=== PATIENT | female | born 1995 | race Caucasian/White ===

== ENCOUNTER 2016-05-17 09:14 | Emergency (ER) | payer MEDICAID, OTHER ==
[~2016-05-17] VITALS: Ht 154.9 cm; Wt 45.5 kg
[2016-05-17 09:26] VITALS: BP 121/62; PULSE 57; RESP 15; TEMP 98.3; O2SAT 98
[2016-05-17 09:46] VITALS: BP 98/56; PULSE 63; RESP 17; TEMP 99; O2SAT 98
--- NOTE | 2016-05-17 11:59 | PD ---
HPI Chief Complaint: Psychiatric Symptoms Time Seen by Provider: 11:58 Travel History International Travel<30 days: No Contact w/Intl Traveler<30days: No Traveled to known affect area: No History of Present Illness HPI 21-year-old female that presents to the ED for evaluation of psychiatric evaluation. Patient came here voluntarily for evaluation of depression. Per patient she's been having depression ongoing for almost 6 months. Per patient she goes to see a therapist for this and they recommended that she go see a psychiatrist. Per patient she's never done so as of yet. Per patient lives stressors have increased so that her depression has been worsening and so she came here. She states that she's never been on medications for this. She denies any history of drug abuse or alcohol abuse. She states that her therapist also believes that maybe she might be bipolar but again she has not seen a psychiatrist for this that she has not done any treatment or evaluation for this. She denies any suicidal or homicidal ideation. Per patient her symptoms are moderate and are progressively getting worse for the past 6 months. She denies any medical complaint and takes no medications. Denies any injuries or trauma. PFSH Past Medical History Psychiatric: Yes ?: Not LMP: 05/17/16 : 0 Para: 0 Social History Alcohol Use: No Tobacco Use: No Substance Use: Yes (States smokes Marijuanna so she can deal with people. ) Allergies-Medications (Allergen,Severity, Reaction): Coded Allergies: Penicillin (Unverified Allergy, Unknown, 05/17/16) Per pt. Reported Meds & Prescriptions Reported Meds & Active Scripts Active No Active Prescriptions or Reported Medications Review of Systems General / Constitutional: No: Fever, Chills, Weight Gain, Weight Loss, Other Eyes: No: Diploplia, Blurred Vision, Photophobia, Drainage, Redness, Foreign Body Sensation, Pain, Tearing, Blind Spots, Visual changes, Blindness, Other HENT: No: Headaches, Vertigo, Lightheadedness, Sore Throat, Rhinitis, Rhinorrhea, Congestion, Nosebleed, Neck Stiffness, Neck Pain, Masses, Gingival Bleeding, Dental Difficulties, Ear Discharge, Earache, Other Cardiovascular: No: Chest Pain or Discomfort, Palpitations, Irregular Rhythm, Tachycardia, Diaphoresis, Syncope, Dyspnea on exertion, Varicosities, Edema, Cyanosis, Varicosities, Phlebitis, Claudication, Other Respiratory: No: Cough, Shortness of Breath, Wheezing, Sneezing, Orthopnea, Hemoptysis, Stridor, Night Sweats, Pleuritic Pain, Other Gastrointestinal: No: Nausea, Vomiting, Diarrhea, Abdominal Pain, Hematemesis, Hematochezia, Constipation, Changes in Bowel Habits, Indigestion, Dysphagia, Loss of Appetite, Other Genitourinary: No: Urgency, Frequency, Dysuria, Nocturia, Hematuria, Decreased Urinary Output, Oliguria, Hesitancy, Dribbling, Incontinence, Pelvic Pain, Flank Pain, Dyspareunia, Discharge, Dysmenorrhea, Menorrhagia, Metorrhagia, Vaginal Bleeding, Other Musculoskeletal: No: Myalgias, Arthralgias, Limited ROM, Weakness, Cramping, Edema, Pain, Atrophy, Other Skin: No Rash, No Itching, No Dryness, No Lumps, No Hives, No Change in Pigmentation, No Change in nails, No Alopecia, No Lesions, No Breast Lumps, No Breast Tenderness, No Breast Swelling, No Other Neurologic: No: Weakness, Dizziness, Syncope, Focal Abnormalities, Coordination Problem, Tremor, Ataxia, Headache, Change in Mentation, Slurred Speech, Paresthesia, Incontinence, Seizures, Sensory Disturbance, Other Psychiatric: Positive: Depression, Mood Disorder, No: Anxiety, Suicidal Ideations, Disorder of Thought, Substance Abuse, Homicidal Ideation, Other Endocrine: No: Heat Intolerance, Cold Intolerance, Polyuria, Polydipsia, Other Hematologic/Lymphatic: No: Easy Bruising, Lymph Node Enlargement, Other Physical Exam Narrative GENERAL: SKIN: Warm and dry. HEAD: Atraumatic. Normocephalic. EYES: Pupils equal and round. No scleral icterus. No injection or drainage. ENT: No nasal bleeding or discharge. Mucous membranes pink and moist. Tongue is midline. No uvula deviation. NECK: Trachea midline. No JVD. CARDIOVASCULAR: Regular rate and rhythm. No murmurs, S3, S4. RESPIRATORY: No accessory muscle use. Clear to auscultation. Breath sounds equal bilaterally. GASTROINTESTINAL: Abdomen soft, non-tender, nondistended. Hepatic and splenic margins not palpable. MUSCULOSKELETAL: Extremities without clubbing, cyanosis, or edema. No obvious deformities. Full range of motion of the upper and lower extremities bilaterally. 2+ pulses bilaterally. NEUROLOGICAL: Awake and alert. No obvious cranial nerve deficits. Motor grossly within normal limits. Five out of 5 muscle strength in the arms and legs. Normal speech. PSYCHIATRIC: Appropriate mood and affect; insight and judgment normal. Data Data Last Documented VS Vital Signs Date Time Temp Pulse Resp B/P Pulse Ox O2 Delivery O2 Flow Rate FiO2 05/17/16 09:46 99.0 63 17 98/56 98 Room Air Orders Complete Blood Count With Diff (05/17/16 09:18) Comprehensive Metabolic Panel (05/17/16 09:18) Psych Screen (05/17/16 09:18) Drug Screen, Random Urine (05/17/16 09:19) Diet Regular Basic (05/17/16 Lunch) Labs Laboratory Tests Test 05/17/16 05/17/16 11:55 11:57 White Blood Count 7.9 TH/MM3 Red Blood Count 4.05 MIL/MM3 Hemoglobin 12.9 GM/DL Hematocrit 37.5 % Mean Corpuscular Volume 92.7 FL Mean Corpuscular Hemoglobin 31.8 PG Mean Corpuscular Hemoglobin 34.3 % Concent Red Cell Distribution Width 13.1 % Platelet Count 181 TH/MM3 Mean Platelet Volume 9.1 FL Neutrophils (%) (Auto) 66.7 % Lymphocytes (%) (Auto) 24.1 % Monocytes (%) (Auto) 8.3 % Eosinophils (%) (Auto) 0.6 % Basophils (%) (Auto) 0.3 % Neutrophils # (Auto) 5.3 TH/MM3 Lymphocytes # (Auto) 1.9 TH/MM3 Monocytes # (Auto) 0.7 TH/MM3 Eosinophils # (Auto) 0.0 TH/MM3 Basophils # (Auto) 0.0 TH/MM3 CBC Comment DIFF FINAL Differential Comment Sodium Level 140 MEQ/L Potassium Level 3.8 MEQ/L Chloride Level 106 MEQ/L Carbon Dioxide Level 27.3 MEQ/L Anion Gap 7 MEQ/L Blood Urea Nitrogen 8 MG/DL Creatinine 0.68 MG/DL Estimat Glomerular Filtration 107 ML/MIN Rate Random Glucose 90 MG/DL Calcium Level 8.7 MG/DL Total Bilirubin 0.4 MG/DL Aspartate Amino Transf 13 U/L (AST/SGOT) Alanine Aminotransferase 16 U/L (ALT/SGPT) Alkaline Phosphatase 46 U/L Total Protein 7.6 GM/DL Albumin 4.4 GM/DL Urine Opiates Screen NEG Urine Barbiturates Screen NEG Urine Amphetamines Screen NEG Urine Benzodiazepines Screen NEG Urine Cocaine Screen NEG Urine Cannabinoids Screen POS MDM Medical Decision Making Medical Screen Exam Complete: Yes Emergency Medical Condition: Yes Medical Record Reviewed: Yes Interpretation(s) CBC & BMP Diagram 05/17/16 11:55 Tox negative LFTs negative Differential Diagnosis Depression versus suicidal ideation versus anxiety versus adjustment disorder versus mood disorder versus bipolar disorder versus schizophrenia versus paranoid disorder versus psychosis versus substance abuse versus alcohol abuse versus alcohol induced psychosis versus homicidality addition versus cutting versus personality disorder Narrative Course 21-year-old female that presents to the ED for evaluation of psych. Patient was properly examined and was found to have signs and symptoms consistent with psychiatric illness. No sign of acute medical distress. Patient will be medically clear. Okay to be seen by psych. Mental health screening was discussed with the patient. Diagnosis Primary Impression: Depression Qualified Code: F33.1 - Moderate episode of recurrent major depressive disorder Scripts No Active Prescriptions or Reported Meds Vitaliy Rajan May 17, 2016 11:59
[2016-05-17 12:28] LABS: AUTOMATED NEUTROPHIL # 5.3 TH/MM3 (1.8-7.7); BASOPHIL % 0.3 % (0.0-2.0); EOSINOPHIL % 0.6 % (0.0-4.0); HEMATOCRIT 37.5 % (35.0-46.0); HEMO FLAGS DIFF FINAL; LYMPH % 24.1 % (9.0-44.0); LYMPHOCYTE # 1.9 TH/MM3 (1.0-4.8); MEAN CELL VOLUME 92.7 FL (80.0-100.0); MEAN CORPUSCULAR HEMOGLOBIN 31.8 PG (27.0-34.0); MEAN CORPUSCULAR HGB CONC 34.3 % (32.0-36.0); MONO % 8.3 % (0.0-8.0); NEUT % 66.7 % (16.0-70.0); PLATELET COUNT 181 TH/MM3 (150-450); RED BLOOD COUNT 4.05 MIL/MM3 (4.00-5.30); RED CELL DISTRIBUTION WIDTH 13.1 % (11.6-17.2); WHITE BLOOD COUNT 7.9 TH/MM3 (4.0-11.0)
[2016-05-17 12:34] LABS: AMPHETAMINE, URINE NEG (NEG); BARBITURATES, URINE NEG (NEG); COCAINE, URINE NEG (NEG)
[2016-05-17 12:42] LABS: ANION GAP 7 MEQ/L (5-15); AST (GOT) 13 U/L (15-37); BICARBONATE 27.3 MEQ/L (21.0-32.0); BLOOD UREA NITROGEN 8 MG/DL (7-18); CHLORIDE 106 MEQ/L (98-107); GLOMERULAR FILTRATION RATE 107 ML/MIN (>89); POTASSIUM 3.8 MEQ/L (3.5-5.1); SODIUM (NA) 140 MEQ/L (136-145)
[2016-05-17 12:45] LABS: ALKALINE PHOSPHATASE 46 U/L (45-117); ALT (GPT) 16 U/L (10-53); TOTAL BILIRUBIN ADULT 0.4 MG/DL (0.2-1.0)
--- NOTE | 2016-05-17 13:37 | PD ---
History of Present Illness Chief Complaint: Psychiatric Symptoms Time Seen by Provider: 13:15 Travel History International Travel<30 Days: No Contact w/Intl Traveler<30days: No Known affected area: No Legal Status Legal Status: Voluntary History of Present Illness: History of Present Illness HPI 21-year-old female with no previous psychiatric history that presents to the ED for psychiatric evaluation. Patient came here voluntarily and as per the request of her mother. Patient reports that she has had difficulty controlling her anger and her impulses " all my life". Reports that when she gets angry she has a hard time letting go of it and usually blows up. Last week she became angry at her mother and she got into a verbal altercation with her. The mother called the police and she was arrested. She also reports that she gets into arguments with people at work and her logistics loss prevention manager has recommended that she receive help. She saw a counselor from [place] [id number] in the past 6 months. She has been trying to find a psychiatrist tin the community but has been unable to find one and is here in ED to help with finding a provider. She has had no previous contact with [facility] psychiatry. Toxicology is positive for cannabinoids. Patient is seen in [facility] pod. Awake, alert, oriented engaging and cooperative. Speech is clear and logical. No pressured speech. There is no psychosis and no hailey. She has not been agitated and has demonstrated appropritte impulse control. Patient with no suicidal or homicidal ideation. She discusses her custodial pattern of acting aggressive and impulsive behavior when she is angry. She is now considering the possible benefits of medication as her mother is reported to be on medication and she sees that she is able to function well. PFSH Past Medical History Patient Takes Glucophage: No Psychiatric: Yes Tetanus Vaccination: < 5 Years Influenza Vaccination: No ?: Not LMP: 05/17/16 : 0 Para: 0 Past Surgical History Surgical History: No Previous Surgery Psychiatric History Psychiatric History Hx Psychiatric Treatment: No previous tx Therapist - [facility] in [place], [place]. States that she saw him only twice approx 6 mons ago. States that she did not have the insurance to be able to see someone. States that she got insurance in Apr. States that she is trying now to received treatment. History of Inpatient Treatment: No Guns or firearms in home: No Social History Born and raised in [place]. Single. Lives with mother and 2 younger siblings. 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 Hx Alcohol Use: No (Denies any current use.) Hx Tobacco Use: No Hx Substance Use: No (Denies any current use/abuse. ) Substance Use Type: Marijuana Hx of Substance Use Treatment: No Family Psychiatric History Mother withbipolar disorder Allergies-Medications (Allergen,Severity, Reaction): Coded Allergies: Penicillin (Unverified Allergy, Unknown, 05/17/16) Per pt. Reported Meds & Prescriptions Reported Meds & Active Scripts Active No Active Prescriptions or Reported Medications Review of Systems Except as stated in HPI: all other systems reviewed are Neg Psychiatric: COMPLAINS OF: Agitation Exam Alert: Yes [place]: Person (ox4) Mood: Calm Affect: Euthymic Speech: Clear, Logical Eye Contact: Normal Memory Intact: Comment (no impairment) Hallucinations: Other (negative) Delusions: No Suicidal: Ideation (deneis any) Homicidal: Ideation (negative) Insight/Judgement Fair. Not impaired MDM Medical Decision Making Medical Record Reviewed: Yes Assessment/Plan 21 year old female under a voluntary basis for psychiatric evaluation. reports a hx of impulsive behavior and of anger management issues. Last week she was arrested after she was involved in an argument with her mother where the police were called. She is seeking to find a psychiatrist to consider the initiation of medication . Macy does not meet criteria for involuntary commitment and is requesting discahrge with outpatietn referrals. I will prescribe Vistaril to help until she is able to obtain outpatietn appointmetn. Discharge to self Orders Complete Blood Count With Diff (05/17/16 09:18) Comprehensive Metabolic Panel (05/17/16 09:18) Psych Screen (05/17/16 09:18) Drug Screen, Random Urine (05/17/16 09:19) Diet Regular Basic (05/17/16 Lunch) Results Vital Signs Date Time Temp Pulse Resp B/P Pulse Ox O2 Delivery O2 Flow Rate FiO2 05/17/16 09:46 99.0 63 17 98/56 98 Room Air 05/17/16 09:26 98.3 57 15 121/62 98 Laboratory Tests Test 05/17/16 05/17/16 11:55 11:57 White Blood Count 7.9 Red Blood Count 4.05 Hemoglobin 12.9 Hematocrit 37.5 Mean Corpuscular Volume 92.7 Mean Corpuscular Hemoglobin 31.8 Mean Corpuscular Hemoglobin 34.3 Concent Red Cell Distribution Width 13.1 Platelet Count 181 Mean Platelet Volume 9.1 Neutrophils (%) (Auto) 66.7 Lymphocytes (%) (Auto) 24.1 Monocytes (%) (Auto) 8.3 Eosinophils (%) (Auto) 0.6 Basophils (%) (Auto) 0.3 Neutrophils # (Auto) 5.3 Lymphocytes # (Auto) 1.9 Monocytes # (Auto) 0.7 Eosinophils # (Auto) 0.0 Basophils # (Auto) 0.0 CBC Comment DIFF FINAL Differential Comment Sodium Level 140 Potassium Level 3.8 Chloride Level 106 Carbon Dioxide Level 27.3 Anion Gap 7 Blood Urea Nitrogen 8 Creatinine 0.68 Estimat Glomerular Filtration 107 Rate Random Glucose 90 Calcium Level 8.7 Total Bilirubin 0.4 Aspartate Amino Transf 13 (AST/SGOT) Alanine Aminotransferase 16 (ALT/SGPT) Alkaline Phosphatase 46 Total Protein 7.6 Albumin 4.4 Urine Opiates Screen NEG Urine Barbiturates Screen NEG Urine Amphetamines Screen NEG Urine Benzodiazepines Screen NEG Urine Cocaine Screen NEG Urine Cannabinoids Screen POS Diagnosis Primary Impression: Adjustment disorder Additional Impression: Depression Psychiatrically Cleared: Yes Med/ Other Pt Specific Info: Prescription(s) given Prescriptions Hydroxyzine Pamoate (Vistaril)25 Mg Cap25 Mg PO Q6H PRN (ANXIETY AND/OR AGITATION) #20 CAP Ref 0 Prov:Turner,Gilmaalicia DUEÑAS 05/17/16 Disposition: 01 DISCHARGE HOME Condition: Stable Problem Qualifiers Primary Impression: Adjustment disorder Qualified Code: F43.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
[2016-05-17] MEDS ORDERED: VIST25CA PO (13:38)
== END 2016-05-17 15:02 | disposition home or self-care (01) ==
LOC: NEPJ 09:14
DX: F32.9 Major depressive disorder, single episode, unspecified (principal); F43.20 Adjustment disorder, unspecified; F12.10 Cannabis abuse, uncomplicated
CPT/HCPCS: 80053; 80307; 85025; 99284